=== PATIENT | female | born 1960 | race Caucasian/White ===

== ENCOUNTER 2021-12-20 18:00 | Outpatient (CLI) | payer MEDICAID, SELFPAY ==
--- NOTE | 2021-12-20 | XRR_ITS ---
PROCEDURE INFORMATION: Exam: XR Left Knee Exam date and time: 12/20/2021 6:21 PM Age: 61 years old Clinical indication: Patient HX: PT C/O chronic left knee pain TECHNIQUE: Imaging protocol: Radiologic exam of the Left knee. Views: 3 views. AP [place] Lateral COMPARISON: CR Knee 3 views, LEFT* [id number] 07/10/2015 12:44 PM FINDINGS: Bones/joints: There is minimal tibia vera. Small degenerative osteophytes are seen. There are no fractures or dislocations. Severe medial compartment and mild patellofemoral compartment joint space narrowing is seen, suggestive of osteoarthritic change. There are no joint bodies. Soft tissues: There is a small knee joint effusion. There are no radiopaque foreign bodies. There is mild knee region soft tissue swelling. Notes: If there is further concern, recommend follow-up radiographs or MRI for complete assessment. XR/XR knee LT 3V* [id number] IMPRESSION: Severe medial compartment osteoarthritic changes of the left knee, as noted above. Small knee joint effusion and mild knee region soft tissue swelling.
== END 2021-12-20 18:01 | disposition home or self-care (01) ==
PROVIDERS: Family Provider Physician Assistant; Visit Provider Family Medicine
DX: M25.562 Pain in left knee (principal); G89.29 Other chronic pain; M25.462 Effusion, left knee
CPT/HCPCS: 73562

== ENCOUNTER → 2022-01-15 10:56 | Outpatient (BNVA) | payer MEDICAID, SELFPAY | PROVIDERS: Family Provider Physician Assistant; Visit Provider Nurse Practitioner Family | DX: M17.12 Unilateral primary osteoarthritis, left knee (principal) | CPT/HCPCS: 73560; 73565; 99213; 99214 ==

== ENCOUNTER → 2025-03-29 09:00 | Outpatient (BNVA) | payer MEDICAID, SELFPAY | PROVIDERS: PCP Family Medicine; Visit Provider Nurse Practitioner Family | DX: Z13.6 Encounter for screening for cardiovascular disorders (principal) | CPT/HCPCS: 80053; 80061; 84443; 85025 ==